=== PATIENT | male | born 1970 | race Caucasian/White ===

== ENCOUNTER → 2018-08-29 | Outpatient (CLI) | payer OTHER ==
[2018-08-29 09:53] LABS: HEMATOCRIT 43.3 % (42.0-52.0); HEMOGLOBIN 14.1 g/dL (13.5-18.0); MEAN PLATELET VOLUME 9.6 fl (7.4-10.4); RED BLOOD COUNT 4.71 M/mm3 (4.20-5.60); RED CELL DISTRIBUTION WIDTH 13.2 % (11.5-14.5); WHITE BLOOD COUNT 5.1 K/mm3 (4.8-10.8)
[2018-08-29 10:25] LABS: CALCIUM 9.3 mg/dL (8.4-10.2); POTASSIUM 3.9 mmol/L (3.5-5.1)
== END ==
LOC: LAB 09:30
DX: Z00.00 Encounter for general adult medical examination without abnormal findings (principal)

== ENCOUNTER 2018-11-07 08:45 | Outpatient (RCR) | payer OTHER | END 2018-11-07 09:00 | disposition still patient (30) | LOC: PT 08:45 | DX: M25.571 Pain in right ankle and joints of right foot (principal) ==

== ENCOUNTER → 2018-12-06 | Outpatient (CLI) | payer OTHER | LOC: RAD 08:30 | DX: R60.0 Localized edema (principal); M65.9 Synovitis and tenosynovitis, unspecified ==

== ENCOUNTER → 2019-09-17 | Outpatient (CLI) | payer OTHER | LOC: LAB 12:38 | DX: Z20.828 Contact with and (suspected) exposure to other viral communicable diseases (principal) ==